=== PATIENT | female | born 1985 ===

== ENCOUNTER 2016-09-20 07:22 | Emergency (ER) | payer SELFPAY ==
--- NOTE | 2016-09-20 07:52 | ED PDOC ---
HPI: General Adult Time Seen by Provider: 09/20/16 07:31 Chief Complaint (Nursing): Medical Clearance History Per: Patient (FTA-ABS reactive in 07/02/2016 and nonreactive 09/02/2016. Here for f/u. Denies sxs. Approx 22 weeks ) Past Medical History Vital Signs: Last Vital Signs Temp 98 F 09/20/16 07:32 Pulse 82 09/20/16 07:32 Resp 20 09/20/16 07:32 BP 92/56 L 09/20/16 07:32 Pulse Ox 98 09/20/16 07:32 - Medical History PMH: No Chronic Diseases Denies: Atrial Fibrillation, Cardia Arrhythmia, Cardiac Aneurysm, Chronic Kidney Disease - Family History Family History: States: Unknown Family Hx - Immunization History Hx Tetanus Toxoid Vaccination: No Hx Influenza Vaccination: No Hx Pneumococcal Vaccination: No - Home Medications Home Medications: Ambulatory Orders Medication Instructions Recorded Amoxicillin/Clavulanate [Augmentin 1 tab PO BID #20 tab 06/09/16 875 MG-125 MG] - Allergies Allergies/Adverse Reactions: Allergies Allergy/AdvReac Type Severity Reaction Status Date / Time No Known Allergies Allergy Verified 09/20/16 07:31 Review of Systems Constitutional: Negative for: Fever Skin: Positive for: Rash Physical Exam - Physical Exam Appears: Positive for: Non-toxic, No Acute Distress Skin: Positive for: Normal Color, Warm, DRY Gastrointestinal/Abdominal: Positive for: Bowel Sounds, Soft, Other (gravid) Neurologic/Psych: Positive for: Alert, Oriented. Negative for: Motor/Sensory Deficits - ECG O2 Sat by Pulse Oximetry: 98 Disposition - Clinical Impression Clinical Impression: Visit for blood test - Patient ED Disposition Is Patient to be Admitted: No - Disposition Referrals: [facility] [Outside] Disposition: Routine/Home Disposition Time: 07:52 Condition: FAIR Instructions: (ED) Print Language: [id number]
[2016-09-20 12:40] VITALS: BP 92/56; PULSE 82; RESP 20; TEMP 98; O2SAT 98
== END 2016-09-20 08:02 | disposition home or self-care (01) ==
LOC: H.ER 07:22
DX: Z3A.22 22 weeks gestation of pregnancy (principal)

== ENCOUNTER 2016-10-03 12:05 | Emergency (ER) | payer OTHER ==
[2016-10-03 13:17] VITALS: BMI 24.2
[2016-10-03 13:44] LABS: RBC URINE 5 /hpf (0-3); URINE BACTERIA RARE (<OCC); URINE BILIRUBIN NEGATIVE (NEGATIVE); URINE BLOOD NEGATIVE (NEGATIVE); URINE COLOR YELLOW (YELLOW); URINE GLUCOSE (UA) NEG (Normal); URINE KETONE NEGATIVE (NEGATIVE); URINE LEUKOCYTE ESTERASE NEG Leu/uL (Negative); URINE PROTEIN NEGATIVE (NEGATIVE); URINE UROBILINOGEN 0.2-1.0 mg/dL (0.2-1.0); WBC URINE 1 /hpf (0-5)
== END 2016-10-03 14:24 | disposition home or self-care (01) ==
LOC: H.EROB2 12:05 → H.EROB 12:40 → H.EROB2 14:24
DX: O26.92 Pregnancy related conditions, unspecified, second trimester (principal); K92.9 Disease of digestive system, unspecified; Z3A.26 26 weeks gestation of pregnancy